=== PATIENT | female | born 1975 | race Caucasian/White ===

== ENCOUNTER → 2020-06-06 | Outpatient (CLI) | payer BC ==
[~2020-06-06] MED LIST: AMBIEN10 M1 PO; ANAPROX DS550 MG PO; MEDROL DOSEPAK4 MG PO; PERCOCET 325 MG1 TA5 PO; SEROQUEL25 MG PO; VIBRAMYCIN100 MG PO; VICODIN ES 7501 TAB PO
== END | disposition home or self-care (01) ==
LOC: COVID19 09:04
PROVIDERS: ATTEND Internal Medicine
DX: Z20.822 Contact with and (suspected) exposure to COVID-19 (principal)